=== PATIENT | male | born 1955 | race Caucasian/White ===

== ENCOUNTER → 2023-12-10 07:52 | Outpatient (REF) | payer MEDICARE, SELFPAY | LOC: RSP 07:52 | PROVIDERS: ATTENDING PHYSICIAN Physician Assistant | DX: R05.3 Chronic cough (principal) | CPT/HCPCS: 94727; 94729; 88738; 94010 ==

== ENCOUNTER → 2024-01-14 09:32 | Outpatient (REF) | payer MEDICARE, SELFPAY ==
[2024-01-14 11:40] LABS: Microalbumin, Random Urine 0.9 mg/dl (0.6-1.7); Microalbumin/creatinine Ratio 6.9 mg/g
[2024-01-14 12:25] LABS: Glycohemoglobin (HgbA1c) 6.9 % (4.0-5.6)
[2024-01-14 12:41] LABS: ALT (SGPT) 29 U/L (0-50); AST (SGOT) 33 U/L (17-59); Albumin 4.5 g/dl (3.5-5.0); Alkaline Phosphatase 68 U/L (38-126); Blood Urea Nitrogen 18 mg/dl (9-20); Calcium 9.4 mg/dl (8.4-10.2); Carbon Dioxide 27 mmol/L (22-30); Chloride 102 mmol/L (98-107); Glucose 83 mg/dl (70-99); HDL Cholesterol 51 mg/dl; LDL Cholesterol, Calculated 38 mg/dl; Potassium 4.2 mmol/L (3.5-5.1); Sodium 137 mmol/L (135-145); Total Bilirubin 0.9 mg/dl (0.2-1.3); Total Cholesterol 103 mg/dl (50-199); Total Protein 7.1 g/dl (6.3-8.2); Triglyceride 71 mg/dl (10-149); Very Low Density Lipoprotein 14 mg/dl (0-30); eGFR > 60.00
== END ==
LOC: REG 09:32
PROVIDERS: ATTENDING PHYSICIAN Physician Assistant
DX: E11.65 Type 2 diabetes mellitus with hyperglycemia (principal)
CPT/HCPCS: 36415; 80053; 80061; 82043; 82570; 83036

== ENCOUNTER 2024-05-09 16:06 | Inpatient (IN) | payer MEDICARE, SELFPAY ==
[2024-05-09] VITALS (7 sets, daily range): BP systolic 121–151; BP diastolic 72–80; BMI 22.3
[2024-05-09 14:02] LABS: % Basophils 0.9 % (0-2); % Eosinophils 1.1 % (0-6); % Immature Granulocytes 0.5 % (0-0.5); % Lymphocytes 23.3 % (20.5-51.1); % Neutrophils 63.2 % (42.2-75.2); Absolute Eosinophils 0.1 10^3/uL (0-0.7); Absolute Monocytes 0.5 10^3/uL (0.1-0.6); Absolute Neutrophils 2.8 10^3/uL (1.4-6.5); Hematocrit 34.1 % (39.0-52.0); Hemoglobin 12.2 g/dL (13.0-18.0); Mean Corp Hgb Conc. 35.8 g/dL (33.0-37.0); Mean Corpuscular Hgb 32.2 pg (27.0-31.0); Mean Platelet Volume 9.5 fL (7.4-10.4); Nucleated Red Blood Cells % 0 % (-); Platelet Count 204 10^3/uL (130-400); Red Blood Cell Count 3.79 10^6/uL (4.70-6.10); Red Cell Dist. Width 13.2 % (11.5-14.5); White Blood Cell Count 4.4 10^3/uL (4.8-10.8)
[2024-05-09] MEDS: PROTONIX 100 IV ×2 (14:04→23:02)
[2024-05-09] MEDS: NSS 1000 IV ×2 (14:04→20:17)
[2024-05-09] MEDS: PROTONIX IV 80 MG IV (14:04)
[2024-05-09 14:24] LABS: ALT (SGPT) 26 U/L (0-50); AST (SGOT) 27 U/L (17-59); Alkaline Phosphatase 61 U/L (38-126); Blood Urea Nitrogen 22 mg/dl (9-20); Carbon Dioxide 24 mmol/L (22-30); Chloride 107 mmol/L (98-107); Glucose 106 mg/dl (70-99); Potassium 3.9 mmol/L (3.5-5.1); Sodium 137 mmol/L (135-145); Total Bilirubin 0.6 mg/dl (0.2-1.3); eGFR > 60.00
[2024-05-09 14:26] LABS: INR 1.02; PT 13.2 Sec (11.4-14.6)
[2024-05-09 14:27] LABS: APTT 27.1 Sec (23.4-35.0)
--- NOTE | 2024-05-09 14:46 | ED.GENMED ---
History of Present Illness
General
Chief Complaint: Rectal Bleeding
Source: patient
Exam Limitations: none
Time Seen by Provider: 05/09/24 13:21
Nursing documentation reviewed up to this point in time: agreed with
History of Present Illness
History of Present Illness:
68-year-old male with history of HTN, HLD, bile duct cancer with Whipple procedure in 2019, IDDM, presents from his PCP Dr. Angelo's office for black tarry stools.
Patient states he has had epigastric area pain 'like I need to take an antacid' for the past 2 weeks. For the past 3 days he has noted black tarry stools. He has been feeling lightheaded to the point where he has to hold onto things at times. He
denies nausea or vomiting. He denies chest pain or shortness of breath.
Past History
Past History
ED Past Medical History: HTN, Hypercholesterolemia and NIDDM
ED Past Surgical History: None
Social History
Tobacco: Non-smoker
Alcohol: None
Drug: None
Personal:
Living: with family
Review of Systems
Review of Systems
Allergies reviewed?: Yes
All Other Systems: ROS reviewed and negative except as documented in HPI and ROS
Constitutional: Denies fever
Respiratory: Denies trouble breathing
Cardiac: Denies chest pain
ABD/GI: Reports abdominal pain and black stools; Denies nausea, vomiting or diarrhea
: Reports no symptoms
Musculoskeletal: Reports no symptoms
Skin: Reports no symptoms
Neurological: Reports no symptoms
Phy Exam
Physical Exam
Physical Exam:
GENERAL: No acute distress. A&Ox3.
CONSTITUTIONAL: Afebrile.
EYES: clear, conjunctivae normal
ENMT: moist mucus membranes, Pharynx nl
RESPIRATORY: Regular respirations, nonlabored, lungs clear.
CARDIOVASCULAR: Regular rate and rhythm, no murmurs, no rubs.
GI: Soft, nontender, normal BS
Rectal: dark stool hematest positive
MUSCULOSKELETAL: Moves with ease. Well perfused.
SKIN: Warm, dry, pink
PSYCH: Normal mood and affect. Well kept, interactive and appropriate
NEUROLOGIC: Awake, alert and oriented. No focal neurological deficits
Course
Orders/Labs/Results
Orders:
Orders
05/09/24 13:37
IV Insert/Care/Rem.- Treatment PRN
Pantoprazole 80 mg/100 ml Nss [Protonix] 80 mg in 100 ml IV NOW
Pantoprazole [Protonix IV] 80 mg IV NOW STA
05/09/24 13:45
0.9% Sodium Chloride 1000 ml [Nss] 1,000 ml IV 125 mls/hr
05/09/24 13:49
Type+Screen Urgent
Complete Blood Count/With Diff Urgent
Comprehensive Metabolic Panel Urgent
PTT Urgent
Prothrombin Time Urgent
05/09/24 14:53
Consult Gastroenterology [GASTROINTESTINAL CONSULT] Urgent
Consulting Provider: Beatriz Velazquez
Was physician already notified: Yes
Reason for consult: GI bleed, black tarry stools
05/09/24 Dinner
Clear Liquid
At Your Request: Full Participation
Does patient need a safe tray?: No
05/09/24 15:33
Admit/Transfer Patient As Directed
Co-Sign Provider:
Level of Care: Inpatient admission
Assign to:: Medical/Surgical
Physician / Group: fermín meza
Diagnosis: epigastric pain black stool concern upper gi bleed
Reason for Hospitalization: epigastric pain black stool concern upper gi bleed
Expected length of stay greater than two midnights?: Yes
ELOS- Estimated Length of Stay in days: 3
I certify the patient meets the requirements for IP care: Yes
Code Status As Directed
Resuscitation Status: Full Code
05/09/24 15:39
PRN Pain Medication Management As Directed
May give lesser potent ordered pain med per pt: Yes
preference::
Protocol:: Medication orders for pain may be administered in a
manner that supports deferring to patient preference
when the pt is:
- Requesting an ordered lesser potent pain medication.
Least to most potent pain medications are defined
as: acetaminophen < NSAID < tramadol < opioids
(morphine, oxycodone, hydromorphone).
- Requesting a lesser dose of the same medication IF
ORDERED.
- Requesting a less intrusive route of administration
if both routes are prescribed by the provider (PO <
IV).
05/09/24 17:13
Ondansetron Injectable [Zofran] 4 mg IV Q6HPRN PRN
05/09/24 17:13
Activity As Directed
Activity Level: As Tolerated
Intake/ Output As Directed
Frequency: Per unit guidelines
Pneumatic Compression Sleeves As Directed
Type: Knee high
Vital Signs As Directed
Frequency: Per unit guidelines
Weight As Directed
Frequency: Daily
Ot Eval And Treat Routine
Pt Eval And Treat Routine
Activity Level: As Tolerated
DX Deep Vein Thrombosis Video Routine
05/10/24 00:00
Pantoprazole 80 mg/100 ml Nss [Protonix] 80 mg in 100 ml IV Q10H
05/10/24 06:00
Complete Blood Count/With Diff IN AM
Comprehensive Metabolic Panel IN AM
05/10/24 08:00
Amlodipine [Norvasc] 10 mg PO DAILY
Rosuvastatin Calcium [Crestor] 10 mg PO DAILY
05/11/24 06:00
Complete Blood Count/With Diff IN AM
Comprehensive Metabolic Panel IN AM
05/12/24 06:00
Complete Blood Count/With Diff IN AM
Comprehensive Metabolic Panel IN AM
Abnormal Lab Results
05/09/24
13:49
WBC 4.4 L 10^3/uL
(4.8-10.8)
RBC 3.79 L 10^6/uL
(4.70-6.10)
Hgb 12.2 L g/dL
(13.0-18.0)
Hct 34.1 L %
(39.0-52.0)
MCH 32.2 H pg
(27.0-31.0)
Absolute Lymphs (auto) 1.0 L 10^3/uL
(1.2-3.4)
Monocytes % 11.0 H %
(1.7-9.3)
BUN 22 H mg/dl
(9-20)
Glucose 106 H mg/dl
(70-99)
Total Protein 6.0 L g/dl
(6.3-8.2)
05/09/24 13:49
05/09/24 13:49
Vital Signs
Initial and Last Documented VS:
Initial Vital Signs
Temp Pulse Resp BP Pulse Ox
98.0 F 67 16 131/76 98
05/09/24 12:42 05/09/24 12:42 05/09/24 12:42 05/09/24 12:42 05/09/24 12:42
Last Documented Vital Signs
Temp Pulse Resp BP Pulse Ox
97.8 F 62 18 135/75 97
05/09/24 17:11 05/09/24 17:11 05/09/24 17:11 05/09/24 17:11 05/09/24 17:11
MDM/Problems Addressed
MDM/Problems Addressed:
68-year-old male with history of HTN, HLD, bile duct cancer with Whipple procedure in 2019, IDDM, presents from his PCP Dr. Angelo's office for black tarry stools.
Patient states he has had epigastric area pain 'like I need to take an antacid' for the past 2 weeks. For the past 3 days he has noted black tarry stools. He has been feeling lightheaded to the point where he has to hold onto things at times. He
denies nausea or vomiting. He denies chest pain or shortness of breath.
Afebrile, NAD, pleasant
Abdomen benign, stool black, heme positive
CBC hemoglobin 12.2, hi base line is 15-16
CMP: BUN 22 otherwise unremarkable
Patient's vital signs stable
Plan: Admit: GI consult in
Hospitalist and GI notified of admission
*Critical Care Note
Total Time (30-74mins, 75-104mins- exclusive of procedures): Not Applicable
ED Attending Note
-
Portions of this chart may have been created with voice recognition software.� Occasional wrong word or��sound alike� substitutions may have occurred due to the inherent limitations of voice recognition software.
Discharge Plan
Departure
Patient Disposition: Admit
Date of Disposition: 05/09/24
Time of Disposition: 14:54
Admit to: Med/Surg
Presentation/result/management discussed w/ accepting MD/DO: Hospitalist
Condition: Good
Discharge Problem:
GI bleeding
Interventions
Interventions:
*Risk Screen - Suicide Last Done: 05/09/24 14:11
*General Assessment Last Done: 05/09/24 12:42
*Neglect/Abuse Screening Last Done: 05/09/24 14:11
ED- Fall Risk Assessment Last Done: 05/09/24 14:12
*ED COVID-19 Vaccine History Last Done: 05/09/24 12:42
*Nursing Disposition Last Done: 05/09/24 16:55
WZ-Haiakv-Gihhvmnytg Assessment Last Done: 05/09/24 15:28
ED- Cardiac Assessment Last Done: 05/09/24 14:12
ED- Pulmonary Assessment Last Done: 05/09/24 15:28
Discharge Date and Time
Discharge Date/Time: 05/09/24 16:55
--- NOTE | 2024-05-09 15:05 | HPS.HSE ---
Family Physician
-
Family Physician:
Chief Complaint
-
Epigastric pain, black stools x 3 days, lightheadedness
History of Present Illness
68-year-old male complaining of epigastric pain with indigestion for the past 2 weeks. He then started having black tarry stools over the last 3 days and feeling lightheaded. He denies any NSAID or aspirin use. He states he has had meloxicam 3
times over the past month with only 1 dose being in the past 2 weeks for chronic knee pain. He denies any current abdominal pain, nausea, vomiting, chest pain, palpitations, shortness breath, cough, urinary symptoms. He has past medical history of
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
Medical History
Past Medical History
Past Medical History: Reports Other
Additional Past Medical History:
bile duct cancer status post Whipple 2018
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
HTN
HLD
DM2.
Past Surgical History: Reports Other
Additional Past Surgical History:
bile duct cancer status post Whipple 2018
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
Social History
Tobacco: Non-smoker
Alcohol: None
Drug: None
Personal:
Living: With Family
Family History
Family History: Other (mother brain ca)
Allergies / Home Medications
Allergies reflects when Allergies were last updated in [facility].
Home Medications with original date entered in [facility]
Allergy/Medication List:
Allergies
Allergy/AdvReac Type Severity Reaction Status Date / Time
mold Allergy runny nose Verified 05/09/24 12:45
Home Medications
amlodipine 10 mg tablet 10 mg PO DAILY Blood pressure 05/22/18
insulin glargine 100 unit/mL (3 mL) subcutaneous pen (Lantus Solostar U-100 Insulin) 40 units SC HS 05/09/24
insulin lispro 100 unit/mL subcutaneous pen (Humalog KwikPen (U-100) Insulin) 5 sliding scale dose SC AC 05/09/24
meloxicam 15 mg tablet 15 mg PO DAILYPRN PRN mild pain 05/09/24
rosuvastatin 10 mg tablet 10 mg PO DAILY 05/09/24
sildenafil 50 mg tablet 50 mg PO DAILYPRN PRN ed 05/09/24
therapeutic multivitamin 1 tab PO DAILY 05/09/24
Review of Systems
-
History Source: Patient
A 12 point ROS was completed and negative except as noted: Yes
Constitutional: Denies Fever or Chills
EENT: Denies Sore Throat or Runny Nose
Respiratory: Denies Cough or Trouble Breathing
Cardiac: Denies Chest Pain, Diaphoresis, Palpitations or Syncope
Abdomen/GI: Reports Abdominal Pain (Epigastric), Vomiting, Diarrhea, Constipated, Black Stools (X 3 days) and Other (Epigastric burning x 2 weeks); Denies Nausea or Bloody Stools
: Denies Dysuria, Frequency, Flank Pain, Incontinence, Difficulty Voiding or Urgency
Musculoskeletal: Denies Joint Pain or Edema
Skin: Denies Itching or Rash
Neurological: Denies Dizzy, Headache or Weakness
Endocrine: Reports No Symptoms
Hematologic/Lymphatic: Reports No Symptoms
Psych: Reports Calm
Physical Exam
Vital Signs
Vital Signs
Temp Pulse Resp BP Pulse Ox
98.0 F 61 18 127/72 94
05/09/24 12:42 05/09/24 14:03 05/09/24 14:03 05/09/24 14:03 05/09/24 14:03
Physical Exam
General: Comfortable and Conversant; No Pain, Fever or Chills
HEENT: NormoCephalic, Anicteric, Moist mucous membranes, PERRLA, [place] Conjunctivae and No Ptosis
Respiratory: Clear; No Wheezes, Rales or Rhonchi
Cardiac: S1/S2 and Regular Rhythm; No Murmur, Rub, Gallop or Peripheral Edema
GI: Soft, Non Tender, Non Distended, Normal Bowel Sounds and No Hepatosplenomegaly
Rectal: Deferred by Provider
Genito-urinary: Deferred by me
Musculoskeletal: No Clubbing, No Cyanosis and No Edema
Skin: Warm and Dry; No Rash or Jaundice
Neuro: AO x 3, No Motor Deficits, Nonfocal/grossly intact, Cranial Nerves Intact and No Sensory Deficits; No Slurred Speech, Facial Droop or Tremors
Psych: Calm
Laboratory Results
-
05/09/24 13:49
05/09/24 13:49
Laboratory Results
PT 13.2 Sec (11.4-14.6) 05/09/24 13:49
INR 1.02 05/09/24 13:49
APTT 27.1 Sec (23.4-35.0) 05/09/24 13:49
Total Bilirubin 0.6 mg/dl (0.2-1.3) 05/09/24 13:49
AST 27 U/L (17-59) 05/09/24 13:49
ALT 26 U/L (0-50) 05/09/24 13:49
Alkaline Phosphatase 61 U/L (38-126) 05/09/24 13:49
Data Reviewed
-
Lab Data: Labs Reviewed by me
Impression/Plan
-
Impression/plan:
Admit to MedSurg
#Abdominal pain/epigastric burning, black stools concern for upper GI bleed
Hgb 12.2
-IV Protonix 80 mg now , IV Protonix drip
-Clear liquid diet
-Consult GI- Dr joe aware
-Follow CBC, CMP
-Hold meloxicam 15 mg daily as needed
-No NSAIDs
#Bile duct CA status post Whipple 2018
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
#HTN�benign
127/72
-Continue amlodipine 10 mg daily with hold parameters
#HLD
-Continue Crestor 10 mg daily
#DM 2
BS 106
Accu-Cheks with SSI, check HgbA1c
Clear liquids
-Hold Lantus 40 units SQ at bedtime, Humalog 5 units with meals
#Erectile dysfunction
Hold sildenafil 50 mg as needed
DVT prophylaxis
SCDs
Full code
--- NOTE | 2024-05-09 15:25 | EDRN ---
Mata Rush NP w/ hospitalist group.
--- NOTE | 2024-05-09 15:28 | W.PN.UPDATE ---
Update Note
Progress Note Update
This serves as an addendum to the H&P dictated by Mayra Rush on 05/09.
I saw and examined the patient.
The MANAGER SOURCING or PA's note was reviewed and I agree with the note.
Comment:
Patient is 68 years old male history of hypertension, hyperlipidemia, diabetes mellitus, complicated GI history with abscess in the gastric wall, cystogastrostomy, Whipple procedure in the past, presented to the with abdominal discomfort associated
with melena. Patient stated he has been having the symptoms over the last several days. He reports melena. He reports abdominal discomfort. He denies nausea or vomiting. He denies chest pain or shortness of breath. He does take NSAIDs although
not excessive. He has been feeling lightheadedness with activity. Hemoglobin in the ER 12.2 from baseline of 15.4 back in 2022. He was referred to hospitalist for further evaluation.
Physical exam:
General: Acutely ill and No Apparent Distress and nontoxic
HEENT: Normocephalic, Atraumatic and Moist Mucous Membranes
Respiratory: Clear to Auscultation; Negative Wheezes, Rales or Rhonchi
Cardiac: Regular Rhythm and S1/S2
GI: Soft, Nontender and Nondistended
Musculoskeletal: No Clubbing, No Cyanosis and No Edema
Neuro: Awake, Alert and Oriented
Psych: Calm
A/P:
Concerns for upper GI bleed--> clear liquid diet, PPI, GI consult, monitor hemoglobin. Will give recommendations based on his clinical course
--- NOTE | 2024-05-09 15:53 | EDRN ---
Dr. Ding in room w/ pt at this time.
--- NOTE | 2024-05-09 17:57 | PTCARENOTE ---
Received patient to [facility] awake alert and oriented . No c/o pain- stated he had 'heartburn' when he entered the ER and it has since resolved. Oriented to room . Call dickens in reach . In no distress at present.
[2024-05-09 18:01] LABS: Glucose - Point of Care 93 mg/dl (70-99)
[2024-05-09 21:15] LABS: Glucose - Point of Care 106 mg/dl (70-99)
[2024-05-10] MEDS: NSS 1000 IV ×3 (03:48→20:04)
[2024-05-10 06:00] VITALS: BMI 22.3
[2024-05-10 07:23] LABS: Glucose - Point of Care 131 mg/dl (70-99)
[2024-05-10 07:32] VITALS: BP 138/78
[2024-05-10] MEDS: CRESTOR 10 MG PO (07:42)
[2024-05-10] MEDS: NORVASC 10 MG PO (07:43)
[2024-05-10] MEDS: PROTONIX 100 IV ×2 (08:56→20:04)
[2024-05-10 09:05] LABS: % Basophils 1.1 % (0-2); % Immature Granulocytes 0.4 % (0-0.5); % Monocytes 10.3 % (1.7-9.3); % Neutrophils 64.2 % (42.2-75.2); Absolute Basophils 0.1 10^3/uL (0-0.2); Absolute Eosinophils 0.1 10^3/uL (0-0.7); Absolute Monocytes 0.5 10^3/uL (0.1-0.6); Absolute Neutrophils 2.9 10^3/uL (1.4-6.5); Hematocrit 33.7 % (39.0-52.0); Hemoglobin 11.9 g/dL (13.0-18.0); Mean Corp Hgb Conc. 35.3 g/dL (33.0-37.0); Mean Corpuscular Hgb 31.6 pg (27.0-31.0); Mean Corpuscular Volume 89.4 fL (80.0-94.0); Mean Platelet Volume 9.5 fL (7.4-10.4); Nucleated Red Blood Cells % 0 % (-); Platelet Count 195 10^3/uL (130-400); Red Blood Cell Count 3.77 10^6/uL (4.70-6.10); Red Cell Dist. Width 13.3 % (11.5-14.5); White Blood Cell Count 4.5 10^3/uL (4.8-10.8)
--- NOTE | 2024-05-10 09:18 | W.PN.HOSP.TC ---
Today's Communication/Plan
-
Continue PPI. Continue monitor hemoglobin. Awaiting GI evaluation
Assessment / Plan
Assessment / Plan
Physical exam:
General: Well Developed, Well Nourished and No Apparent Distress
HEENT: Normocephalic, Atraumatic and Moist Mucous Membranes
Respiratory: Clear to Auscultation; Negative Wheezes, Rales or Rhonchi
Cardiac: Regular Rhythm and S1/S2
GI: Soft, Nontender and Nondistended
Musculoskeletal: No Clubbing, No Cyanosis and No Edema
Neuro: Awake, Alert and Oriented
Psych: Calm
A/P:
#Abdominal pain/epigastric burning, black stools concern for upper GI bleed
Hgb 12.2-->11.9
-IV Protonix 80 mg now , IV Protonix drip
-Clear liquid diet
-Consult GI- Dr joe aware--> likely will need upper endoscopy but awaiting GI input
-Follow CBC, CMP
-Hold meloxicam 15 mg daily as needed
-No NSAIDs
# Acute blood loss anemia
Continue to monitor hemoglobin
#Bile duct CA status post Whipple 2018
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
#HTN�benign
138/78
-Continue amlodipine 10 mg daily with hold parameters
#HLD
-Continue Crestor 10 mg daily
#DM 2
BS 128
Accu-Cheks with SSI, check HgbA1c
Clear liquids
-Hold Lantus 40 units SQ at bedtime, Humalog 5 units with meals
#Erectile dysfunction
Hold sildenafil 50 mg as needed
DVT prophylaxis
SCDs
Full code
Anticipated Discharge: 24 - 48 hours
Subjective/Interval History
-
Date of Service: May 10, 2024
Patient complains of abdominal discomfort. No chest pain or shortness of breath.
Objective Data
-
Labs:
Laboratory Results
05/10/24
08:47
WBC 4.5 L
Hgb 11.9 L
Hct 33.7 L
Plt Count 195
Sodium Pending
Potassium Pending
Chloride Pending
Carbon Dioxide Pending
BUN Pending
Creatinine Pending
Glucose Pending
Calcium Pending
Total Bilirubin Pending
AST Pending
ALT Pending
Alkaline Phosphatase Pending
Vital Signs:
Vital Signs
Temp Pulse Resp BP Pulse Ox
97.9 F 63 18 138/78 98
05/10/24 07:32 05/10/24 07:43 05/10/24 07:32 05/10/24 07:43 05/10/24 07:32
I&O
05/09/24 05/10/24 05/11/24
06:59 06:59 06:59
Intake Total 480 / 480
Output Total 250 / 250
Balance 230 / 230
[2024-05-10 10:09] LABS: ALT (SGPT) 25 U/L (0-50); AST (SGOT) 29 U/L (17-59); Albumin 3.6 g/dl (3.5-5.0); Alkaline Phosphatase 55 U/L (38-126); Blood Urea Nitrogen 14 mg/dl (9-20); Calcium 8.5 mg/dl (8.4-10.2); Carbon Dioxide 24 mmol/L (22-30); Chloride 105 mmol/L (98-107); Estimated Creatinine Clearance > 125 ml/min; Glucose 128 mg/dl (70-99); Potassium 4.3 mmol/L (3.5-5.1); Sodium 136 mmol/L (135-145); Total Bilirubin 1.2 mg/dl (0.2-1.3); Total Protein 5.7 g/dl (6.3-8.2); eGFR > 60.00
[2024-05-10 10:35] VITALS: BP 141/75; BP 142/93; BP 145/76; BP 153/82; PULSE 58; PULSE 60; PULSE 67
[2024-05-10 12:01] LABS: Glycohemoglobin (HgbA1c) 6.7 % (4.0-5.6)
[2024-05-10 12:05] LABS: Glucose - Point of Care 137 mg/dl (70-99)
--- NOTE | 2024-05-10 15:21 | CON.GI ---
Consultation
-
Date/Time Consultation Requested: 05/10/2024
Date/Time Consultation Performed: 05/10/2024
Requesting Provider: Isabeltalist
Performing Provider: Alden GABRIEL
Reason for Consultation: melena
Medical History
Chief Complaint / HPI
Chief Complaint: Epigastric pain/black stool
History of Present Illness:
68-year-old male with below mentioned past medical history admitted to ED complaining of epigastric abdominal pain/black tarry stool for 3 days. He also experienced lightheadedness. He was taking meloxicam in the past intermittently. Denies any
nausea or vomiting.
Past Medical History
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
Past Surgical History: Other (Whipple surgery 2019)
Social History
Tobacco: Non-Smoker
Alcohol: None
Allergies / Home Medications
Allergy/AdvReac Type Severity Reaction Status Date / Time
mold Allergy runny nose Verified 05/09/24 12:45
�Medication �Instructions �Recorded
amlodipine 10 mg tablet 10 mg PO DAILY Blood pressure 05/22/18
insulin glargine 100 unit/mL (3 40 units SC HS Diabetes 05/09/24
mL) subcutaneous pen (Lantus
Solostar U-100 Insulin)
insulin lispro 100 unit/mL 5 sliding scale dose SC AC Diabetes 05/09/24
subcutaneous pen (Humalog KwikPen
(U-100) Insulin)
meloxicam 15 mg tablet 15 mg PO DAILYPRN PRN mild pain 05/09/24
rosuvastatin 10 mg tablet 10 mg PO DAILY High Cholesterol 05/09/24
sildenafil 50 mg tablet 50 mg PO DAILYPRN PRN ed 05/09/24
therapeutic multivitamin 1 tab PO DAILY Supplement 05/09/24
Review of Systems
-
All other systems: A 12 pt ROS was Negative except as stated above in HPI
Vital Signs
Temp Pulse Resp BP Pulse Ox
97.9 F 63 18 138/78 98
05/10/24 07:32 05/10/24 07:43 05/10/24 07:32 05/10/24 07:43 05/10/24 07:32
Physical Exam
Exam
General: No Apparent Distress
Respiratory: Clear
Cardiac: S1/S2
GI: Soft, Non Tender, Non Distended and Normal Bowel Sounds
Results
WBC 4.5 10^3/uL (4.8-10.8) L 05/10/24 08:47
Hgb 11.9 g/dL (13.0-18.0) L 05/10/24 08:47
Hct 33.7 % (39.0-52.0) L 05/10/24 08:47
MCV 89.4 fL (80.0-94.0) 05/10/24 08:47
Plt Count 195 10^3/uL (130-400) 05/10/24 08:47
Absolute Neuts (auto) 2.9 10^3/uL (1.4-6.5) 05/10/24 08:47
PT 13.2 Sec (11.4-14.6) 05/09/24 13:49
INR 1.02 05/09/24 13:49
APTT 27.1 Sec (23.4-35.0) 05/09/24 13:49
Sodium 136 mmol/L (135-145) 05/10/24 08:47
Potassium 4.3 mmol/L (3.5-5.1) 05/10/24 08:47
Chloride 105 mmol/L (98-107) 05/10/24 08:47
Carbon Dioxide 24 mmol/L (22-30) 05/10/24 08:47
BUN 14 mg/dl (9-20) 05/10/24 08:47
Creatinine 0.7 mg/dL (0.7-1.3) 05/10/24 08:47
Calcium 8.5 mg/dl (8.4-10.2) 05/10/24 08:47
Total Bilirubin 1.2 mg/dl (0.2-1.3) 05/10/24 08:47
AST 29 U/L (17-59) 05/10/24 08:47
ALT 25 U/L (0-50) 05/10/24 08:47
Alkaline Phosphatase 55 U/L (38-126) 05/10/24 08:47
Diagnostic Image Results:
Prior GI Procedures:
EGD: 04/23/2021 Dr. Munroe
Normal esophagus. Deformity in the gastric body. Erythematous mucosa in the stomach. Normal jejunum
Stomach biopsy path negative for H. pylori
Colonoscopy:
06/03/2020 Dr. Mckeon
20 mm polyp in the rectum. Removed piecemeal. Path villous adenoma with focal area of high-grade dysplasia.
Follow-up sigmoidoscopy 11/21/2020-post polypectomy scar was found at the tattoo site. No evidence of residual polyp
Assessment / Plan
-
68-year-old male with history of cholangiocarcinoma status post Whipple surgery complaining of upper abdominal burning pain with black tarry stool for 3 days. Last EGD 2020 details in HPI. Abdominal exam today unremarkable
-- Melena/abdominal pain rule out upper GI bleeding. Remote history of NSAIDs use intermittently
-- History of cholangiocarcinoma status post Whipple surgery 2018
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
-- colon polyp
plan
Clear liquid diet today
Continue PPI drip
Continue monitor Hb
N.p.o. after midnight. EGD tomorrow
Recommend cross-sectional abdominal imaging if abdominal pain recurs
Total Time Spent with Patient (in minutes): 55
-
-
Thank you for consultation and allowing me to participate in the patient's care. Please call the harvesting contractor GI physician during the after hours with any questions or concerns.
[2024-05-10 15:38] VITALS: BP 146/85
[2024-05-10 16:16] LABS: Glucose - Point of Care 104 mg/dl (70-99)
[2024-05-10 16:41] LABS: Glucose - Point of Care 97 mg/dl (70-99)
[2024-05-10 21:24] LABS: Glucose - Point of Care 93 mg/dl (70-99)
[2024-05-10 23:12] VITALS: BP 143/75
[2024-05-11] VITALS (8 sets, daily range): BP systolic 12–159; BP diastolic 75–86; BMI 21.8
[2024-05-11] MEDS: NSS 1000 IV (04:21)
[2024-05-11] MEDS: PROTONIX 100 IV (05:58)
[2024-05-11 06:00] LABS: Glucose - Point of Care 126 mg/dl (70-99)
[2024-05-11 07:44] LABS: Glucose - Point of Care 150 mg/dl (70-99)
--- NOTE | 2024-05-11 08:10 | W.PN.HOSP.TC ---
Today's Communication/Plan
-
EGD. Monitor hemoglobin
Assessment / Plan
Assessment / Plan
Physical exam:
General: Well Developed, Well Nourished and No Apparent Distress
HEENT: Normocephalic, Atraumatic and Moist Mucous Membranes
Respiratory: Clear to Auscultation; Negative Wheezes, Rales or Rhonchi
Cardiac: Regular Rhythm and S1/S2
GI: Soft, Nontender and Nondistended
Musculoskeletal: No Clubbing, No Cyanosis and No Edema
Neuro: Awake, Alert and Oriented
Psych: Calm
A/P:
#Abdominal pain/epigastric burning, black stools concern for upper GI bleed
Hgb 12.2-->11.9--> hemoglobin today pending
-IV Protonix will change to oral Protonix
-EGD today. Discussed with GI. Plan to advance diet today
-Hold meloxicam 15 mg daily as needed
-No NSAIDs
# Acute blood loss anemia
Continue to monitor hemoglobin
#Bile duct CA status post Whipple 2018
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
#HTN�benign
Stable
-Continue amlodipine 10 mg daily with hold parameters
#HLD
-Continue Crestor 10 mg daily
#DM 2
BS 128
Accu-Cheks with SSI, check HgbA1c
Advancing diet
-Resume Lantus 40 units SQ at bedtime, continue home Humalog 5 units with meals but will keep sliding scale and increase to moderate
#Erectile dysfunction
Hold sildenafil 50 mg as needed
DVT prophylaxis
SCDs
Full code
Anticipated Discharge: Within 24 hours
Subjective/Interval History
-
Date of Service: May 11, 2024
No abdominal pain nausea vomiting
Objective Data
-
Labs:
Laboratory Results
05/11/24
06:00
Hgb Pending
Hct Pending
Vital Signs:
Vital Signs
Temp Pulse Resp BP Pulse Ox
98 F 59 19 137/80 99
05/11/24 07:34 05/11/24 07:34 05/11/24 07:34 05/11/24 07:34 05/11/24 07:34
I&O
05/10/24 05/11/24 05/12/24
06:59 06:59 06:59
Intake Total 480 / 480 2460 / 2460
Output Total 250 / 250 2150 / 2150
Balance 230 / 230 310 / 310
[2024-05-11] MEDS: FLUSH (NSS) 1 FLUSH IV (08:33)
[2024-05-11 10:11] LABS: Glucose - Point of Care 123 mg/dl (70-99)
--- NOTE | 2024-05-11 10:20 | SUR.PHASEI ---
patient in pacu post endoscopy with MAC - awake, alert and oriented - no c/o other than dull headache. Dr Velazquez spoke with patient and reviewed findings and plan of care. vss, discharge by transport department and stretcher back to [facility]. Report
given by phone
[2024-05-11] MEDS: NORVASC 10 MG PO (10:57)
[2024-05-11] MEDS: CRESTOR 10 MG PO (10:57)
[2024-05-11] MEDS: PROTONIX 40 MG PO (10:57)
[2024-05-11 11:16] LABS: Glucose - Point of Care 117 mg/dl (70-99)
--- NOTE | 2024-05-11 12:35 | CM ---
Patient seen at bedside.
IA completed. IMM explained & signed. Placed in chart.
Patient lives in a multi story home. No steps to enter. 12 steps to bed/bath.
PLOF: Independent, drives.
No anticipated needs.
PLAN: Discharge when stable. No needs.
[2024-05-11] MEDS: NOVOLOG FLEXPEN 4 UNITS SC (12:41)
[2024-05-11 13:46] LABS: Hemoglobin 13.5 g/dL (13.0-18.0)
--- NOTE | 2024-05-11 14:32 | W.DCSUMMARY ---
Discharge Summary
Discharge Data
Date of Admission: 05/09/24
Date of Discharge: 05/11/24
-
Pending Results: No
Hospital Course
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 Patient was monitored
in the hospital and treated with proton pump inhibitor. GI consulted. Patient was taken to EGD on 05/11 and it showed some erythema in the pylorus sparing Whipple area and nonbleeding anastomotic ulcer, no stigmata of bleeding. Diet was advanced
and he tolerated well. GI cleared him for discharge. Hemoglobin 13.5 upon discharge. He will be kept on PPI as outpatient. He will be discharged in stable condition today.
Discharge duration: 34 minutes
Discharge Plan
-
Patient Disposition: Home (Routine Discharge)
Discharge Diagnosis/Procedures: Acute gastrointestinal bleed due to acute gastritis. Acute blood loss anemia.
Diet: Diabetic, Carb Controlled
Activity: As tolerated
Blood Work: Please PCP to order CBC, BMP within 1 week
Referrals:
Erik Neal MD [Family Provider] - in less than 1 week
Beatriz Velazquez MD [Active] - in four to six weeks
Additional Discharge Medication Instructions: Avoid NSAIDs.
Prescriptions:
New
pantoprazole 40 mg Tablet,Delayed Release (Dr/Ec)
40 mg PO BID 30 Days Qty: 60 0RF
Continued
amlodipine 10 MG tablet
10 mg PO DAILY
insulin glargine [Lantus Solostar U-100 Insulin] 300 UNITS/3 ML insulin pen
40 units SC HS
sildenafil 50 mg Tablet
50 mg PO DAILYPRN PRN (Reason: ed)
meloxicam 15 mg Tablet
15 mg PO DAILYPRN PRN (Reason: mild pain)
therapeutic multivitamin Tablet
1 tab PO DAILY
insulin lispro [Humalog KwikPen Insulin] 100 unit/mL Insulin Pen
5 sliding scale dose SC AC
rosuvastatin 10 mg Tablet
10 mg PO DAILY
Discharge Orders:
Discharge Patient (As Directed); Ordered 05/11/24
Ordered By: Hemant Ding
Discharge Date and Time
Discharge Date/Time: 05/11/24 14:54
Print Language: MONGOLIAN
== END 2024-05-11 14:54 | disposition home or self-care (01) | DRG 378 ==
LOC: 4 WEST ACU 16:06
PROVIDERS: Clinical Nurse Specialist Family Health; Registered Nurse; ADMITTING PHYSICIAN Hospitalist; CONSULT PHYSICIAN Internal Medicine Gastroenterology; EMERGENCY PHYSICIAN Emergency Medicine; FAMILY PHYSICIAN Family Medicine
PROC: 0DB68ZX Excision of Stomach, Via Natural or Artificial Opening Endoscopic, Diagnostic (ICD-10-PCS; 2024-05-11)
DX: K29.01 Acute gastritis with bleeding (principal); D62 Acute posthemorrhagic anemia; E11.9 Type 2 diabetes mellitus without complications; I10 Essential (primary) hypertension; E78.00 Pure hypercholesterolemia, unspecified; N52.9 Male erectile dysfunction, unspecified; Z90.411 Acquired partial absence of pancreas; Z85.09 Personal history of malignant neoplasm of other digestive organs; Z79.899 Other long term (current) drug therapy; Z79.4 Long term (current) use of insulin; Z79.1 Long term (current) use of non-steroidal anti-inflammatories (NSAID)
CPT/HCPCS: 88305; 80053; 82962; 83036; 85014; 85018; 85025; 85610; 85730; 86850; 86900; 86901; 88342; 96365; 96366; 97161; 99285

== ENCOUNTER → 2024-05-18 10:31 | Outpatient (REF) | payer MEDICARE, SELFPAY ==
[2024-05-18 11:14] LABS: % Basophils 1.2 % (0-2); % Immature Granulocytes 0.9 % (0-0.5); % Lymphocytes 28.9 % (20.5-51.1); % Monocytes 12.4 % (1.7-9.3); % Neutrophils 54.6 % (42.2-75.2); Absolute Eosinophils 0.1 10^3/uL (0-0.7); Absolute Monocytes 0.4 10^3/uL (0.1-0.6); Absolute Neutrophils 1.9 10^3/uL (1.4-6.5); Hematocrit 34.8 % (39.0-52.0); Hemoglobin 12.3 g/dL (13.0-18.0); Mean Corp Hgb Conc. 35.3 g/dL (33.0-37.0); Mean Corpuscular Hgb 31.5 pg (27.0-31.0); Mean Corpuscular Volume 89.2 fL (80.0-94.0); Mean Platelet Volume 9.9 fL (7.4-10.4); Nucleated Red Blood Cells % 0 % (-); Platelet Count 256 10^3/uL (130-400); Red Cell Dist. Width 13.8 % (11.5-14.5); White Blood Cell Count 3.5 10^3/uL (4.8-10.8)
[2024-05-18 12:13] LABS: PSA, Total - Screen 1.33 ng/ml (0.0-4.0)
[2024-05-18 13:51] LABS: ALT (SGPT) 27 U/L (0-50); AST (SGOT) 30 U/L (17-59); Albumin 4.4 g/dl (3.5-5.0); Alkaline Phosphatase 68 U/L (38-126); Blood Urea Nitrogen 17 mg/dl (9-20); Calcium 9.1 mg/dl (8.4-10.2); Carbon Dioxide 28 mmol/L (22-30); Chloride 102 mmol/L (98-107); Glucose 112 mg/dl (70-99); HDL Cholesterol 42 mg/dl; LDL Cholesterol, Calculated 69 mg/dl; Potassium 4.1 mmol/L (3.5-5.1); Sodium 141 mmol/L (135-145); Total Bilirubin 0.6 mg/dl (0.2-1.3); Total Cholesterol 125 mg/dl (50-199); Total Protein 6.7 g/dl (6.3-8.2); Triglyceride 72 mg/dl (10-149); Very Low Density Lipoprotein 14 mg/dl (0-30); eGFR > 60.00
== END ==
LOC: REG 10:31
PROVIDERS: ATTENDING PHYSICIAN Physician Assistant
DX: Z12.5 Encounter for screening for malignant neoplasm of prostate (principal); E11.65 Type 2 diabetes mellitus with hyperglycemia; Z79.4 Long term (current) use of insulin; C22.1 Intrahepatic bile duct carcinoma; I10 Essential (primary) hypertension
CPT/HCPCS: 36415; 80053; 80061; 85025; G0103

== ENCOUNTER → 2024-05-20 09:24 | Outpatient (REF) | payer MEDICARE, SELFPAY ==
[2024-05-20 11:03] LABS: % Basophils 1.1 % (0-2); % Eosinophils 4.5 % (0-6); % Immature Granulocytes 0.4 % (0-0.5); % Monocytes 12.2 % (1.7-9.3); % Neutrophils 66.8 % (42.2-75.2); Absolute Basophils 0.1 10^3/uL (0-0.2); Absolute Eosinophils 0.2 10^3/uL (0-0.7); Absolute Lymphocytes 0.7 10^3/uL (1.2-3.4); Absolute Monocytes 0.6 10^3/uL (0.1-0.6); Absolute Neutrophils 3.1 10^3/uL (1.4-6.5); Hematocrit 38.3 % (39.0-52.0); Mean Corp Hgb Conc. 33.9 g/dL (33.0-37.0); Mean Corpuscular Hgb 31.3 pg (27.0-31.0); Mean Corpuscular Volume 92.1 fL (80.0-94.0); Mean Platelet Volume 10.2 fL (7.4-10.4); Nucleated Red Blood Cells % 0 % (-); Platelet Count 242 10^3/uL (130-400); Red Blood Cell Count 4.16 10^6/uL (4.70-6.10); Red Cell Dist. Width 13.5 % (11.5-14.5); White Blood Cell Count 4.7 10^3/uL (4.8-10.8)
== END ==
LOC: REG 09:24
PROVIDERS: ATTENDING PHYSICIAN Physician Assistant
DX: K92.2 Gastrointestinal hemorrhage, unspecified (principal)
CPT/HCPCS: 36415; 85025

== ENCOUNTER 2024-08-19 06:18 | Day surgery (SDC) | payer MEDICARE, SELFPAY ==
[2024-08-19 08:04] LABS: Glucose - Point of Care 83 mg/dl (70-99)
== END 2024-08-19 09:25 | disposition home or self-care (01) ==
LOC: GI 06:18
PROVIDERS: ATTENDING PHYSICIAN Internal Medicine Gastroenterology
DX: Z09 Encounter for follow-up examination after completed treatment for conditions other than malignant neoplasm (principal); K29.70 Gastritis, unspecified, without bleeding; Z87.11 Personal history of peptic ulcer disease; Z90.49 Acquired absence of other specified parts of digestive tract; Z90.411 Acquired partial absence of pancreas; K63.89 Other specified diseases of intestine
CPT/HCPCS: 43235; 82962

== ENCOUNTER → 2024-11-24 11:44 | Outpatient (REF) | payer MEDICARE, SELFPAY | LOC: RCS 11:44 | PROVIDERS: ATTENDING PHYSICIAN Internal Medicine Interventional Cardiology; FAMILY PHYSICIAN Family Medicine | DX: I10 Essential (primary) hypertension (principal); R06.09 Other forms of dyspnea | CPT/HCPCS: 93306 ==

== ENCOUNTER 2024-12-07 04:04 | Emergency (ER) | payer MEDICARE, SELFPAY ==
[2024-12-07 04:05] VITALS: BMI 31.7
[2024-12-07 04:06] VITALS: BP 156/78
[2024-12-07 04:16] VITALS: BP 149/76
[2024-12-07 04:18] LABS: Glucose - Point of Care 62 mg/dl (70-99)
[2024-12-07 04:42] LABS: Glucose - Point of Care 68 mg/dl (70-99)
[2024-12-07 04:48] LABS: Glucose - Point of Care 72 mg/dl (70-99)
[2024-12-07 06:12] LABS: Glucose - Point of Care 66 mg/dl (70-99)
[2024-12-07 06:28] LABS: Glucose - Point of Care 68 mg/dl (70-99)
--- NOTE | 2024-12-07 06:37 | ED.GENMED ---
History of Present Illness
General
Chief Complaint: Blood Sugar Problem
Source: patient and spouse
Time Seen by Provider: 12/07/24 06:08
History of Present Illness
History of Present Illness:
69-year-old male with history of diabetes who accidentally took his Humalog instead of his Lantus. Patient was supposed take 45 units of his long-acting insulin when he reached over at around 3 AM. He had forgot to take it. He then realized he
took his Humalog instead. He states at home his blood sugar was dipping down to the 50s and he became concerned. He was trying eats sugar at home. Patient on my evaluation offers no complaints. States he just feels 'stupid'. States he initially
felt little 'woozy' when walking in the emergency department. Now feels better.
Past History
Past History
ED Past Medical History: HTN, Hypercholesterolemia and NIDDM
ED Past Surgical History: Other (Whipple procedure)
Social History
Tobacco: Non-smoker
Alcohol: None
Drug: None
Personal:
Living: with family
Phy Exam
Physical Exam
Physical Exam:
CONSTITUTIONAL Vital signs reviewed, Patient alert and oriented to person, place and time. Well-appearing
HEAD atraumatic, normocephalic.
EYES eyelids normal to inspection, Extraocular muscles intact, Conjunctiva normal, Sclera normal.
NECK normal range of motion, Trachea midline, no jugular venous distention.
RESP no respiratory distress
BACK No obvious deformities
UPPER EXTREMITY Gross Range of motion normal, gross motor strength normal
LOWER EXTREMITY Gross range of motion normal, Gross motor strength normal
NEURO Speech normal, No focal motor deficits include, Alisa coma scale 15, Memory normal, Cranial Nerves intact to screening exam.
SKIN Skin warm, dry, and normal in color.
PSYCHIATRIC Patient oriented to person place and time, Normal affect.
Course
Orders/Labs/Results
Orders:
Abnormal Lab Results
03/12/07/24 12/07/24
04:16 04:31 06:10
POC Glucose 62 L mg/dl 68 L mg/dl 66 L mg/dl
(70-99) (70-99) (70-99)
12/07/24 12/07/24
06:25 07:20
POC Glucose 68 L mg/dl 100 H mg/dl
(70-99) (70-99)
Vital Signs
Initial and Last Documented VS:
Initial Vital Signs
Temp Pulse Resp BP Pulse Ox
97.8 F 62 22 156/78 95
12/07/24 04:06 12/07/24 04:06 12/07/24 04:06 12/07/24 04:06 12/07/24 04:06
Last Documented Vital Signs
Temp Pulse Resp BP Pulse Ox
97.8 F 63 14 149/76 93
12/07/24 04:06 12/07/24 06:00 12/07/24 06:00 12/07/24 04:16 12/07/24 06:00
MDM/Problems Addressed
MDM/Problems Addressed:
Accidental insulin overdose, hypoglycemia, type 2 diabetes
*Pulse Oximetry
Patient hypoxic: no
*Critical Care Note
Total Time (30-74mins, 75-104mins- exclusive of procedures): Not Applicable
Data Reviewed
Prescriptions/Medications Considered But Not Given:
Considered IV glucose, D50 but patient was able to tolerate a meal
Patient Management
Escalation/DeEscalation of care consider admission/obs:
Patient eating a sandwich. Appears well. Recheck sugar after he eats longchain carbohydrates
07 32 patient feels much better. Blood sugar 100. Will monitor his blood sugar at home.
ED Attending Note
-
Portions of this chart may have been created with voice recognition software.� Occasional wrong word or��sound alike� substitutions may have occurred due to the inherent limitations of voice recognition software.
Discharge Plan
Departure
Patient Disposition: Home (Routine Discharge)
Date of Disposition: 12/07/24
Time of Disposition: 07:32
Patient with high blood pressure during this ER visit?: Yes
Discharge Problem:
Accidental overdose of insulin
Instructions: Low Blood Sugar, Adult (DC), BLOOD PRESSURE
Prescriptions:
No Action
amlodipine 10 MG tablet
10 mg PO DAILY
insulin glargine [Lantus Solostar U-100 Insulin] 300 UNITS/3 ML insulin pen
40 units SC HS
sildenafil 50 mg Tablet
50 mg PO DAILYPRN PRN (Reason: ed)
meloxicam 15 mg Tablet
15 mg PO DAILYPRN PRN (Reason: mild pain)
therapeutic multivitamin Tablet
1 tab PO DAILY
insulin lispro [Humalog KwikPen Insulin] 100 unit/mL Insulin Pen
5 sliding scale dose SC AC
rosuvastatin 10 mg Tablet
10 mg PO DAILY
pantoprazole 40 mg Tablet,Delayed Release (Dr/Ec)
40 mg PO BID 30 Days Qty: 60 0RF
Referrals:
Erik Neal MD [Family Provider] -
Activity Restrictions/Additional Instructions:
Please monitor your blood sugar frequently throughout the day and stick to a regular diet. Return immediately for changes in mentation, weakness of any kind or any other concerns. Please see your doctor in the next 3 to 5 days for follow-up and
reevaluation.
Interventions
Interventions:
*Risk Screen - Suicide Last Done: 12/07/24 04:41
*General Assessment Last Done: 12/07/24 04:41
*Neglect/Abuse Screening Last Done: 12/07/24 04:41
*ED- Fall Risk Assessment Last Done: 12/07/24 04:41
*ED COVID-19 Vaccine History Last Done: 12/07/24 04:41
ED- Neurological Assessment Last Done: 12/07/24 04:36
Discharge Date and Time
Print Language: FAROESE
[2024-12-07 06:45] LABS: Glucose - Point of Care 86 mg/dl (70-99)
[2024-12-07 07:22] LABS: Glucose - Point of Care 100 mg/dl (70-99)
== END 2024-12-07 07:48 | disposition home or self-care (01) ==
LOC: EMR 04:04
PROVIDERS: EMERGENCY PHYSICIAN Emergency Medicine; FAMILY PHYSICIAN Family Medicine
DX: T38.3X1A Poisoning by insulin and oral hypoglycemic [antidiabetic] drugs, accidental (unintentional), initial encounter (principal); E11.649 Type 2 diabetes mellitus with hypoglycemia without coma; Z79.4 Long term (current) use of insulin; E78.00 Pure hypercholesterolemia, unspecified; I10 Essential (primary) hypertension
CPT/HCPCS: 99283; 82962

== ENCOUNTER → 2024-12-31 07:44 | Outpatient (REF) | payer MEDICARE, SELFPAY ==
[2024-12-31 10:09] LABS: AST (SGOT) 34 U/L (17-59); Albumin 4.1 g/dl (3.5-5.0); Alkaline Phosphatase 70 U/L (38-126); Blood Urea Nitrogen 18 mg/dl (9-20); Calcium 9.1 mg/dl (8.4-10.2); Carbon Dioxide 29 mmol/L (22-30); Chloride 105 mmol/L (98-107); Glucose 109 mg/dl (70-99); HDL Cholesterol 47 mg/dl; LDL Cholesterol, Calculated 39 mg/dl; Potassium 4.2 mmol/L (3.5-5.1); Sodium 142 mmol/L (135-145); Total Bilirubin 0.8 mg/dl (0.2-1.3); Total Cholesterol 97 mg/dl (50-199); Total Protein 6.5 g/dl (6.3-8.2); Triglyceride 55 mg/dl (10-149); Very Low Density Lipoprotein 11 mg/dl (0-30); eGFR > 60.00
[2024-12-31 10:37] LABS: ALT (SGPT) 42 U/L (0-50)
== END ==
LOC: REG 07:44
PROVIDERS: ATTENDING PHYSICIAN Internal Medicine Interventional Cardiology; FAMILY PHYSICIAN Family Medicine
DX: E78.2 Mixed hyperlipidemia (principal)
CPT/HCPCS: 36415; 80053; 80061

== ENCOUNTER → 2025-03-19 11:51 | Outpatient (REF) | payer MEDICARE, SELFPAY ==
[2025-03-19 12:37] LABS: % Basophils 0.9 % (0-2); % Eosinophils 1.5 % (0-6); % Immature Granulocytes 0.6 % (0-0.5); % Lymphocytes 21.2 % (20.5-51.1); % Monocytes 12.2 % (1.7-9.3); % Neutrophils 63.6 % (42.2-75.2); Absolute Eosinophils 0.1 10^3/uL (0-0.7); Absolute Monocytes 0.6 10^3/uL (0.1-0.6); Hematocrit 44.4 % (39.0-52.0); Hemoglobin 15.3 g/dL (13.0-18.0); Mean Corp Hgb Conc. 34.5 g/dL (33.0-37.0); Mean Corpuscular Hgb 31.3 pg (27.0-31.0); Mean Corpuscular Volume 90.8 fL (80.0-94.0); Mean Platelet Volume 9.3 fL (7.4-10.4); Nucleated Red Blood Cells % 0 % (-); Platelet Count 217 10^3/uL (130-400); Red Blood Cell Count 4.89 10^6/uL (4.70-6.10); Red Cell Dist. Width 13.2 % (11.5-14.5); White Blood Cell Count 4.7 10^3/uL (4.8-10.8)
[2025-03-19 13:01] LABS: Glycohemoglobin (HgbA1c) 7.1 % (4.0-5.6)
[2025-03-19 13:04] LABS: ALT (SGPT) 34 U/L (0-50); AST (SGOT) 26 U/L (17-59); Albumin 4.5 g/dl (3.5-5.0); Alkaline Phosphatase 63 U/L (38-126); Blood Urea Nitrogen 17 mg/dl (9-20); Calcium 9.2 mg/dl (8.4-10.2); Carbon Dioxide 29 mmol/L (22-30); Chloride 106 mmol/L (98-107); Glucose 97 mg/dl (70-99); Potassium 4.3 mmol/L (3.5-5.1); Sodium 140 mmol/L (135-145); Total Protein 7.1 g/dl (6.3-8.2); eGFR > 60.00
[2025-03-19 13:26] LABS: Microalbumin/creatinine Ratio 10.8 mg/g
[2025-03-21 02:29] LABS: ANA, IgG Reflex to HEp-2 None Detected (None Detected)
[2025-03-21 15:49] LABS: Anaplasma phagocytophilum PCR Not Detected; Ehrlichia chaffeensis by PCR Not Detected; Ehrlichia ewingii/canis by PCR Not Detected; Ehrlichia muris-like by PCR Not Detected
[2025-03-22 01:43] LABS: RMSF IgG Antibodies <1:64 (<1:64); RMSF IgM Antibodies <1:64 (<1:64)
== END ==
LOC: RAD 11:51
PROVIDERS: ATTENDING PHYSICIAN Nurse Practitioner Family; FAMILY PHYSICIAN Physician Assistant; REFERRING PHYSICIAN Nurse Practitioner
DX: M79.89 Other specified soft tissue disorders (principal); I77.6 Arteritis, unspecified; E11.65 Type 2 diabetes mellitus with hyperglycemia; Z79.4 Long term (current) use of insulin; C22.1 Intrahepatic bile duct carcinoma; R60.9 Edema, unspecified
CPT/HCPCS: 36415; 80053; 82043; 82570; 83036; 85025; 86038; 86618; 86753; 86757; 87468; 87484; 87798; 93971